=== PATIENT | female | born 1975 | race Caucasian/White ===

== ENCOUNTER → 2023-09-29 15:47 | Outpatient (REF) | payer OTHER, SELFPAY | LOC: WDC 15:47 | PROVIDERS: ATTENDING PHYSICIAN Obstetrics & Gynecology | DX: Z12.31 Encounter for screening mammogram for malignant neoplasm of breast (principal) | CPT/HCPCS: 77063; 77067 ==

== ENCOUNTER → 2023-10-05 08:59 | Outpatient (REF) | payer OTHER, SELFPAY | LOC: WDC 08:59 | PROVIDERS: ATTENDING PHYSICIAN Obstetrics & Gynecology | DX: R92.8 Other abnormal and inconclusive findings on diagnostic imaging of breast (principal) | CPT/HCPCS: 76642 ==

== ENCOUNTER → 2024-01-31 16:28 | Outpatient (REF) | payer OTHER, SELFPAY | LOC: RAD 16:28 | PROVIDERS: ATTENDING PHYSICIAN Nurse Practitioner Family | DX: M25.562 Pain in left knee (principal) | CPT/HCPCS: 73564 ==

== ENCOUNTER → 2024-02-23 16:26 | Outpatient (REF) | payer OTHER, SELFPAY ==
[2024-02-23 18:34] LABS: Urine Albumin Negative (Neg - Trace); Urine Bilirubin Negative (Negative); Urine Character Clear (Clear); Urine Color Yellow; Urine Glucose Negative (Negative); Urine Ketone Negative (Negative); Urine Leukocyte Negative (Negative); Urine Nitrite Negative (Negative); Urine Occult Blood Negative (Negative); Urine Urobilinogen Negative (Neg - 1+)
== END ==
LOC: REG 16:26
PROVIDERS: ATTENDING PHYSICIAN Family Medicine; FAMILY PHYSICIAN Family Medicine
DX: R10.32 Left lower quadrant pain (principal); R10.2 Pelvic and perineal pain
CPT/HCPCS: 81003

== ENCOUNTER → 2025-04-25 13:23 | Outpatient (REF) | payer OTHER, SELFPAY | LOC: CPAP 13:23 | PROVIDERS: ATTENDING PHYSICIAN Obstetrics & Gynecology | DX: Z01.419 Encounter for gynecological examination (general) (routine) without abnormal findings (principal); Z11.51 Encounter for screening for human papillomavirus (HPV) | CPT/HCPCS: 87624 ==

== ENCOUNTER → 2025-05-22 13:15 | Outpatient (REF) | payer OTHER, SELFPAY | LOC: WDC 13:15 | PROVIDERS: ATTENDING PHYSICIAN Obstetrics & Gynecology; FAMILY PHYSICIAN Family Medicine | DX: Z12.31 Encounter for screening mammogram for malignant neoplasm of breast (principal) | CPT/HCPCS: 77063; 77067 ==

== ENCOUNTER → 2025-06-28 15:35 | Outpatient (REF) | payer OTHER, SELFPAY | LOC: RAD 15:35 | PROVIDERS: ATTENDING PHYSICIAN Family Medicine; FAMILY PHYSICIAN Family Medicine | DX: R10.22 Pelvic and perineal pain left side (principal); Z87.898 Personal history of other specified conditions; M79.652 Pain in left thigh | CPT/HCPCS: 76770; 76856 ==